=== PATIENT | male | born 1990 | race Caucasian/White ===

== ENCOUNTER 2023-02-25 12:10 | Emergency (ER) | payer OTHER ==
[~2023-02-25] VITALS: Ht 172.7 cm; Wt 72.0 kg
[2023-02-25 12:29] VITALS: BP 114/74; PULSE 60; RESP 16; TEMP 98; O2SAT 97
== END 2023-02-25 12:43 | disposition home or self-care (01) ==
LOC: ER 12:10
DX: S61.431A Puncture wound without foreign body of right hand, initial encounter (principal); W46.1XXA Contact with contaminated hypodermic needle, initial encounter; Y93.89 Activity, other specified; Y92.89 Other specified places as the place of occurrence of the external cause; Y99.8 Other external cause status
CPT/HCPCS: 99281